=== PATIENT | female | born 1950 | race Caucasian/White ===

== ENCOUNTER 2018-03-28 16:41 | Inpatient (IN) | payer OTHER ==
[~2018-03-28] VITALS: Ht 160 cm; Wt 28.9 kg
[2018-03-28] MEDS: MYCOPHENOLATE 500 MG TAB PO SCH (00:10)
[~2018-03-28 16:41] MED LIST: AML5T GT; ASPI81CH43 PO; CALC-337 OR; FLUT500M2 INH; FLUT50SP13; LEFL1TAB3 PO; LEVO50TA7 PO; LORA-622 PO; METO1TAB9 PO; MULTTAB20 OR; MYCO500T PO; NAPR220C PO; NOR10T PO; PANT1INJ3 PO; PRE5T PO; SULF500T37 PO; ZOLP10TA PO
[2018-03-28] MEDS ORDERED: SODIUM CHLORIDE 0.9% 500 ML IV ONE (17:51)
[2018-03-28 18:06] LABS: Basophils # (auto) 0.1 uL; Basophils % (auto) 0.9 % (0.0-2.0); Lymphocytes # (auto) 1.2 uL; Mean Corpuscular Hemoglobin 26.8 pg (28.0-32.0); Mean Corpuscular Hgb Conc. 31.6 g/dL (32.0-36.0); Monocytes # (auto) 0.4 uL; Neutrophils # (auto) 8.9 uL; White Blood Cell 11.3 10^3/uL (4.4-10.8)
[2018-03-28 18:08] LABS: Eosinophils # (auto) 0.7 uL; Eosinophils % (auto) 5.9 % (0.0-7.0); Hematocrit 31.8 % (36.0-46.0); Lymphocytes % (auto) 10.3 % (10.0-50.0); Mean Corpuscular Volume 84.7 fL (80.0-100.0); Monocytes % (auto) 3.8 % (0.0-12.0); Neutrophils % (auto) 79.1 % (37.0-80.0); Platelet Count (auto) 354 10^3/uL (140-450); Red Blood Cells 3.75 10^6/uL (4.0-5.20); Red Cell Distribution Width 17.5 % (11.8-14.3)
[2018-03-28 18:18] LABS: Alanine Aminotransferase 10 U/L (13-56); Albumin 2.9 g/dL (3.4-5.0); Anion Gap 12 (5-15); Aspartate Aminotransferase 15 U/L (15-37); BUN/Creatinine Ratio 45.7; Blood Urea Nitrogen 53 mg/dL (7-18); Calcium 8.2 mg/dL (8.5-10.1); Carbon Dioxide 22 mmol/L (21-32); Chloride 98 mmol/L (98-107); GFR African American 60 mL/min; GFR Non-African American 50 mL/min; Glucose 97 mg/dL (74-106); Magnesium 1.5 mg/dL (1.6-2.6); Potassium 3.3 mmol/L (3.5-5.1); Sodium 132 mmol/L (136-145)
[2018-03-28 18:20] LABS: INR 1.14 (0.9-1.15); Partial Thromboplastin Time 28.6 sec (23.78-33.04); Prothrombin Time 12.1 sec (9.27-12.13)
[2018-03-28 18:23] LABS: Alkaline Phosphatase 103 U/L (45-117); Bilirubin, Total 0.4 mg/dL (0.2-1.0); Total Protein 7.2 g/dL (6.4-8.2)
[2018-03-28] MEDS ORDERED: POTASSIUM CHL 20MEQ/100ML 100 ML IV ONE (20:00)
[2018-03-28] MEDS ORDERED: TEMAZEPAM 15 MG CAP PO PRN (20:45)
[2018-03-28] MEDS ORDERED: ACETAMINOPHEN 325 MG TAB PO PRN (20:45)
[2018-03-28] MEDS ORDERED: ONDANSETRON HCL 4 MG/2 ML VIAL IV PRN (20:45)
[2018-03-28] MEDS: SODIUM CHLORIDE 0.9% 1,000 ML IV SCH (21:40)
[2018-03-28] MEDS: FAMOTIDINE 20 MG TAB PO SCH (21:40)
[2018-03-28] MEDS: MAGNESIUM SULFATE 1GM/100ML 100 ML IV SCH ×2 (21:45→23:29)
[2018-03-28] MEDS ORDERED: MYCOPHENOLATE 500 MG TAB PO SCH (22:00)
[2018-03-29] MEDS ORDERED: MAGNESIUM SULFATE 1GM/100ML 100 ML IV ONE (01:20)
[2018-03-29 01:22] LABS: Urine Bacteria MANY /hpf (None Seen); Urine WBC 13555 /hpf (0 - 5); Urine WBC Clumps PRESENT /hpf (None Seen)
[2018-03-29 06:09] LABS: Basophils # (auto) 0.1 uL; Eosinophils # (auto) 0.4 uL; Eosinophils % (auto) 4.7 % (0.0-7.0); Hematocrit 28.5 % (36.0-46.0); Hemoglobin 9.1 g/dL (12.2-16.2); Lymphocytes # (auto) 0.8 uL; Lymphocytes % (auto) 9.2 % (10.0-50.0); Mean Corpuscular Hemoglobin 27.4 pg (28.0-32.0); Mean Corpuscular Hgb Conc. 31.8 g/dL (32.0-36.0); Monocytes # (auto) 0.4 uL; Monocytes % (auto) 4.3 % (0.0-12.0); Neutrophils # (auto) 7.2 uL; Neutrophils % (auto) 80.8 % (37.0-80.0); Platelet Count (auto) 237 10^3/uL (140-450); Red Blood Cells 3.31 10^6/uL (4.0-5.20); Red Cell Distribution Width 17.4 % (11.8-14.3); White Blood Cell 8.9 10^3/uL (4.4-10.8)
[2018-03-29 06:26] LABS: Potassium 3.7 mmol/L (3.5-5.1)
[2018-03-29 06:33] LABS: Albumin 2.4 g/dL (3.4-5.0); BUN/Creatinine Ratio 55.4; Bilirubin, Total 0.6 mg/dL (0.2-1.0); Calcium 7.8 mg/dL (8.5-10.1); Total Protein 5.7 g/dL (6.4-8.2)
[2018-03-29] MEDS: LEVOTHYROXINE SODIUM 50 MCG TAB PO SCH (07:35)
[2018-03-29] MEDS: SULFASALAZINE 500 MG TAB PO SCH ×2 (09:22→19:08)
[2018-03-29] MEDS: MYCOPHENOLATE 500 MG TAB PO SCH ×3 (10:00→22:18)
[2018-03-29] MEDS: ENOXAPARIN SOD 40 MG/0.4 ML SYRINGE SC SCH (10:11)
[2018-03-29] MEDS: METOPROLOL SUCCINATE XL 50 MG TAB PO SCH (10:11)
[2018-03-29] MEDS: SODIUM CHLORIDE 0.9% 1,000 ML IV SCH ×2 (10:12→22:41)
[2018-03-29] MEDS: FAMOTIDINE 20 MG TAB PO SCH ×2 (10:12→22:19)
[2018-03-29] MEDS: predniSONE 5 MG TAB PO SCH (10:12)
[2018-03-29] MEDS: amLODIPine BESYLATE 5 MG TAB PO SCH (10:12)
[2018-03-29] MEDS: PANTOPRAZOLE 40 MG TAB PO SCH (10:12)
[2018-03-29] MEDS ORDERED: MYCO500T PO (11:57)
[2018-03-29] MEDS ORDERED: BUTA50TA36 OR (12:12)
[2018-03-29] MEDS ORDERED: HYDR200T36 PO (12:12)
[2018-03-29] MEDS ORDERED: AMLO5TAB13 PO (12:12)
[2018-03-29] MEDS ORDERED: GABA300C10 PO (12:12)
[2018-03-29] MEDS ORDERED: CYCL1TAB18 PO (12:12)
[2018-03-29] MEDS ORDERED: LEFL20TA PO (12:12)
[2018-03-29] MEDS ORDERED: TRAM50TA2 PO (12:12)
[2018-03-29] MEDS ORDERED: MELA3TAB27 PO (12:12)
[2018-03-29 13:00] VITALS: BP 150/74
[2018-03-29 14:48] VITALS: BP 151/78
[2018-03-29 17:00] VITALS: BP 135/64
[2018-03-29] MEDS: HYDROcodone-ACET 5/325MG TAB PO PRN ×2 (17:01→22:19)
[2018-03-29] MEDS: LEVOFLOXACIN 500 MG TAB PO SCH (17:13)
[2018-03-29 22:00] VITALS: BP 132/69
[2018-03-29] MEDS: MIRTAZAPINE 30 MG TAB PO SCH (22:19)
[2018-03-30] MEDS: SODIUM CHLORIDE 0.9% 1,000 ML IV SCH ×2 (03:07→14:10)
[2018-03-30 05:00] VITALS: BP 141/70
[2018-03-30] MEDS: HYDROcodone-ACET 5/325MG TAB PO PRN ×5 (05:57→22:31)
[2018-03-30] MEDS: LEVOTHYROXINE SODIUM 50 MCG TAB PO SCH (05:57)
[2018-03-30 08:00] VITALS: BP 138/70
[2018-03-30] MEDS: Ensure Enlive Strawberry 8oz Bottle PO SCH ×3 (08:00→17:54)
[2018-03-30 09:00] VITALS: BP 138/70
[2018-03-30] MEDS: SULFASALAZINE 500 MG TAB PO SCH ×2 (09:07→18:26)
[2018-03-30] MEDS: LEVOFLOXACIN 500 MG TAB PO SCH (10:00)
[2018-03-30] MEDS ORDERED: MEGESTROL ACET 400MG/10ML ORAL SUSP PO SCH (10:00)
[2018-03-30] MEDS: predniSONE 5 MG TAB PO SCH (10:00)
[2018-03-30] MEDS: amLODIPine BESYLATE 5 MG TAB PO SCH (10:00)
[2018-03-30] MEDS: PANTOPRAZOLE 40 MG TAB PO SCH (10:00)
[2018-03-30] MEDS: METOPROLOL SUCCINATE XL 50 MG TAB PO SCH (10:01)
[2018-03-30] MEDS: FAMOTIDINE 20 MG TAB PO SCH ×2 (10:01→22:49)
[2018-03-30] MEDS: MYCOPHENOLATE 500 MG TAB PO SCH ×2 (10:01→22:49)
[2018-03-30] MEDS: ENOXAPARIN SOD 40 MG/0.4 ML SYRINGE SC SCH (10:07)
[2018-03-30 13:00] VITALS: BP 127/69
[2018-03-30 17:00] VITALS: BP 147/72
[2018-03-30 22:00] VITALS: BP_SYST 134; BP_SYST 152; BP_DIAS 72; BP_DIAS 78
[2018-03-30] MEDS: MIRTAZAPINE 30 MG TAB PO SCH (22:49)
== END 2018-03-30 23:46 | DRG 640 ==
LOC: EDBD 16:41 → ER 16:41 → OVERFLOW 16:42 → WEST WING 03-29 08:05
PROVIDERS: ADMIT Nurse Practitioner; ATTEND Internal Medicine
DX: R62.7 Adult failure to thrive (principal); E43 Unspecified severe protein-calorie malnutrition; K51.90 Ulcerative colitis, unspecified, without complications; Z68.1 Body mass index [BMI] 19.9 or less, adult; M35.3 Polymyalgia rheumatica; I10 Essential (primary) hypertension; J44.9 Chronic obstructive pulmonary disease, unspecified; K21.9 Gastro-esophageal reflux disease without esophagitis; F32.9 Major depressive disorder, single episode, unspecified; D50.9 Iron deficiency anemia, unspecified; D64.9 Anemia, unspecified; E87.8 Other disorders of electrolyte and fluid balance, not elsewhere classified; M32.9 Systemic lupus erythematosus, unspecified; Z82.49 Family history of ischemic heart disease and other diseases of the circulatory system; Z83.3 Family history of diabetes mellitus; Z90.710 Acquired absence of both cervix and uterus; Z93.3 Colostomy status; Z95.0 Presence of cardiac pacemaker; Z79.82 Long term (current) use of aspirin; Z79.899 Other long term (current) drug therapy; Z80.9 Family history of malignant neoplasm, unspecified; Z82.61 Family history of arthritis; Z85.9 Personal history of malignant neoplasm, unspecified; Z87.891 Personal history of nicotine dependence
CPT/HCPCS: 36415; 71045; 80053; 81001; 83735; 84484; 85025; 85610; 85730; 93005; 94761; 96361; 96365; 96366; 96368; J3480; J7517

== ENCOUNTER 2018-06-14 14:44 | Emergency (ER) | payer OTHER ==
[~2018-06-14] VITALS: Ht 157.5 cm; Wt 49.9 kg
[~2018-06-14 14:44] MED LIST changes: -AML5T GT; +AMLO5TAB13 PO; +BUTA50TA36 OR; +CYCL1TAB18 PO; -FLUT500M2 INH; +GABA300C10 PO; +HYDR200T36 PO; +LEFL20TA PO; +MELA3TAB27 PO; -NAPR220C PO; -NOR10T PO; +TRAM50TA2 PO; -ZOLP10TA PO
[2018-06-14 15:32] LABS: Eosinophils # (auto) 0.2 uL; Hemoglobin 8.7 g/dL (12.2-16.2); Lymphocytes # (auto) 0.8 uL; Monocytes # (auto) 0.3 uL
[2018-06-14 15:33] LABS: Basophils # (auto) 0.1 uL; Eosinophils % (auto) 1.3 % (0.0-7.0); Hematocrit 27.9 % (36.0-46.0); Lymphocytes % (auto) 6.9 % (10.0-50.0); Mean Corpuscular Hemoglobin 27.2 pg (28.0-32.0); Mean Corpuscular Hgb Conc. 31.2 g/dL (32.0-36.0); Neutrophils # (auto) 10.2 uL; Neutrophils % (auto) 87.8 % (37.0-80.0); Platelet Count (auto) 280 10^3/uL (140-450); Red Blood Cells 3.21 10^6/uL (4.0-5.20); Red Cell Distribution Width 17.6 % (11.8-14.3); White Blood Cell 11.6 10^3/uL (4.4-10.8)
[2018-06-14 15:36] LABS: Albumin 2.9 g/dL (3.4-5.0); Anion Gap 5 (5-15); Aspartate Aminotransferase 19 U/L (15-37); BUN/Creatinine Ratio 24.7; Blood Urea Nitrogen 21 mg/dL (7-18); Calcium 7.8 mg/dL (8.5-10.1); Carbon Dioxide 22 mmol/L (21-32); Chloride 104 mmol/L (98-107); GFR African American 86 mL/min; GFR Non-African American 71 mL/min; Glucose 90 mg/dL (74-106); Potassium 5.2 mmol/L (3.5-5.1); Sodium 131 mmol/L (136-145)
[2018-06-14 15:39] LABS: Alanine Aminotransferase < 6 U/L (13-56); Alkaline Phosphatase 74 U/L (45-117); Bilirubin, Total 0.4 mg/dL (0.2-1.0); Total Protein 6.6 g/dL (6.4-8.2)
[2018-06-14 15:48] LABS: Urine Bacteria NONE SEEN /hpf (None Seen); Urine Blood Negative /uL (Negative); Urine Specific Gravity 1.008 (1.001-1.035); Urine WBC 8 /hpf (0 - 5)
[2018-06-14] MEDS ORDERED: SODIUM CHLORIDE 0.9% 500 ML IV ONE (18:41)
[2018-06-14] MEDS ORDERED: LORazepam 2MG/ML-1ML VIAL ONE (19:36)
[2018-06-14] MEDS ORDERED: ONDANSETRON HCL 4 MG/2 ML VIAL IV ONE (20:30)
[2018-06-14] MEDS ORDERED: MORPHINE SULFATE 4 MG/ML SYR/VIAL IV ONE (20:30)
[2018-06-14 20:51] LABS: Magnesium 1.5 mg/dL (1.6-2.6)
[2018-06-14] MEDS ORDERED: PHENYTOIN IV DILANTIN 1,000 MG in SODIUM CHL 0.9% 250 ML IV ONE (21:30)
[2018-06-14] MEDS ORDERED: PHENYTOIN SODIUM 50 MG/ML 5ML INJ VIAL IV ONE (21:54)
[2018-06-14] MEDS ORDERED: PHENYTOIN SODIUM 50 MG/ML 2ML VIAL IV ONE (21:55)
[2018-06-14 22:40] VITALS: BP 116/57
== END 2018-06-14 23:06 | disposition short-term general hospital (02) ==
LOC: ER 14:44 → EDUNIT# 14:44 → ER 23:06
DX: S06.5X9A Traumatic subdural hemorrhage with loss of consciousness of unspecified duration, initial encounter (principal); S42.032A Displaced fracture of lateral end of left clavicle, initial encounter for closed fracture; E83.51 Hypocalcemia; E83.42 Hypomagnesemia; R56.9 Unspecified convulsions; J44.9 Chronic obstructive pulmonary disease, unspecified; K21.9 Gastro-esophageal reflux disease without esophagitis; I10 Essential (primary) hypertension; E07.9 Disorder of thyroid, unspecified; Z90.710 Acquired absence of both cervix and uterus; Z95.0 Presence of cardiac pacemaker; Z87.891 Personal history of nicotine dependence; Z79.82 Long term (current) use of aspirin; Z79.899 Other long term (current) drug therapy; W18.39XA Other fall on same level, initial encounter; Y93.89 Activity, other specified; Y99.8 Other external cause status; Y92.89 Other specified places as the place of occurrence of the external cause
CPT/HCPCS: 36415; 70450; 72125; 73030; 80053; 81001; 83735; 84484; 85025; 93005; 94761; 96365; 96375; 99291; J1165; J2060; J2270; J2405; J7050; 96361